=== PATIENT | male | born 1960 | race Native Hawaiian/Other Pacific Islander ===

== ENCOUNTER 2018-01-07 11:03 | Observation (INO) | payer MEDICARE ==
[2018-01-07] MEDS ORDERED: ASPIRIN PO ONE (11:27)
[2018-01-07] MEDS ORDERED: CARDIZEM/D5W 100MG/100ML 100 MG/100 ML BAG IV ONE (11:29)
[2018-01-07 11:56] LABS: Basophils # (Auto) 0.1 K/mm3 (0.0-0.1); Basophils % (Auto) 0.9 % (0.0-1.8); Eosinophils # (Auto) 0.1 K/mm3 (0.0-0.4); Eosinophils % (Auto) 0.8 % (0.0-4.3); Hematocrit 40.9 % (35.5-45.6); Hemoglobin 13.8 gm/dl (11.8-15.2); Lymphocytes # (Auto) 2.2 K/mm3 (1.2-5.4); Lymphocytes % (Auto) 32.6 % (13.4-35.0); Mean Corpuscular HGB Conc 34 % (32-34); Mean Corpuscular Hemoglobin 28 pg (28-32); Mean Corpuscular Volume 83 fl (84-94); Monocytes # (Auto) 0.5 K/mm3 (0.0-0.8); Platelet Count 169 K/mm3 (140-440); Red Blood Count 4.91 M/mm3 (3.65-5.03); Red Cell Distribution Width 13.8 % (13.2-15.2)
[2018-01-07 12:22] LABS: INR 0.97 (0.87-1.13)
[2018-01-07 12:23] LABS: Partial Thromboplastin Time 56.7 Sec. (24.2-36.6)
[2018-01-07 12:28] LABS: BUN/Creatinine Ratio 11; Blood Urea Nitrogen 14 mg/dL (9-20); Calcium 9.2 mg/dL (8.4-10.2)
[2018-01-07 12:29] LABS: Alanine Aminotransferase 37 units/L (7-56); Albumin 4.1 g/dL (3.9-5); Hemolysis Index 20
[2018-01-07 12:36] LABS: Bilirubin,Direct < 0.2 mg/dL (0-0.2)
--- NOTE | 2018-01-07 12:46 | XRay Report ---
PORTABLE CHEST INDICATION: Hypertension. COMPARISON: None similar. FINDINGS: Portable, frontal chest radiograph suggests borderline cardiomegaly. Clear lungs. EKG leads. Few bony degenerative changes. CONCLUSION: No acute chest process, as described. Thank you for the opportunity to participate in this patient's care.
--- NOTE | 2018-01-07 13:27 | Consultation ---
History of Present Illness Consult date: 01/07/18 Consult reason: tachycardia History of present illness: 57-year-old man who presented to the emergency room with a sustained, narrow complex tachycardia with heart rate 224 bpm. Prior to arrival to the emergency room, the suspender maker gave him 3 sequential doses of adenosine, which reportedly were unsuccessful in reverting the tachycardia. Ultimately in the emergency room he received intravenous amiodarone bolus, following which the tachycardia apparently resolved. A review of his ECGs and telemetry strips show the initial presenting tachycardia to have the appearance of her supraventricular or A-V node reentry tachycardia. Another differential of this tachycardia is possibly atrial flutter with one-to-one conduction. Following amiodarone slowing, the ECG shows an ectopic atrial tachycardia at 111/min, OR atrial flutter with variable AV conduction. In addition to the rhythm abnormalities, the patient had significant ST segment depression, likely tachycardia related, but some of which have persisted even after resolution of the tachycardia. The patient is still in the emergency room , looks and feels much better, no chest pain, no shortness of breath and no further palpitations. He gives a history of paroxysmal atrial tachyarrhythmias for several years, his photo editor is Dr. Jose Luis Torres. He states that he carries a diagnosis of atrial fibrillation. However, he is not on oral anticoagulation, but was instead told to take aspirin 325 daily. He is not on AV richard blocking therapy or arrhythmia suppression therapy. Previous cardiac workup includes a cardiac catheterization over 5 years ago, that he states was negative, and a negative stress test 2 months ago which was done for preoperative colonoscopy cardiac assessment. Comorbidities include hyperlipidemia for which he takes atorvastatin 20 mg. Past History Past Medical History: atrial fib, hypertension Medications and Allergies Active Meds: Active Medications Diltiazem HCl (Cardizem/D5w 100mg/100ml) 100 mg in 100 mls @ 5 mls/hr IV TITR ONE; Protocol Stop: 01/08/18 07:28 Last Admin: 01/07/18 12:55 Dose: 5 mg/hr, 5 mls/hr Review of Systems Cardiovascular: palpitations, shortness of breath, no chest pain, no orthopnea, no rapid/irregular heart beat, no edema, no syncope, no lightheadedness Physical Examination Vital Signs Resp Pulse Ox 26 H 100 01/07/18 11:08 01/07/18 11:08 General appearance: no acute distress HEENT: Positive: PERRL Neck: Positive: neck supple Cardiac: Positive: irregularly irregular Lungs: Positive: Decreased Breath Sounds Neuro: Positive: Grossly Intact Abdomen: Positive: Soft Male genitourinary: Positive: deferred Skin: Positive: Clear Extremities: Absent: edema Results 01/07/18 11:20 01/07/18 11:20 Cardiac Enzymes 01/07/18 Range/Units 11:20 AST 35 (5-40) units/L Coagulation 01/07/18 Range/Units 11:20 PT 13.4 (12.2-14.9) Sec. INR 0.97 (0.87-1.13) APTT 56.7 H (24.2-36.6) Sec. CBC 01/07/18 Range/Units 11:20 WBC 6.9 (4.5-11.0) K/mm3 RBC 4.91 (3.65-5.03) M/mm3 Hgb 13.8 (11.8-15.2) gm/dl Hct 40.9 (35.5-45.6) % Plt Count 169 (140-440) K/mm3 Lymph # 2.2 (1.2-5.4) K/mm3 [place] # 0.5 (0.0-0.8) K/mm3 Eos # 0.1 (0.0-0.4) K/mm3 Baso # 0.1 (0.0-0.1) K/mm3 Comprehensive Metabolic Panel 01/07/18 Range/Units 11:20 Sodium 140 (137-145) mmol/L Potassium 3.3 L (3.6-5.0) mmol/L Chloride 101.5 (98-107) mmol/L Carbon Dioxide 21 L (22-30) mmol/L BUN 14 (9-20) mg/dL Creatinine 1.3 (0.8-1.5) mg/dL Glucose 157 H (75-100) mg/dL Calcium 9.2 (8.4-10.2) mg/dL Direct Bilirubin < 0.2 (0-0.2) mg/dL Indirect Bilirubin 0.3 mg/dL AST 35 (5-40) units/L ALT 37 (7-56) units/L Alkaline Phosphatase 86 (35-129) units/L Total Protein 7.1 (6.3-8.2) g/dL Albumin 4.1 (3.9-5) g/dL EKG interpretations - Telemetry EKG Rhythm: SVT Assessment and Plan - Patient Problems (1) Narrow complex tachycardia Current Visit: Yes Status: Acute Plan to address problem: Narrow complex tachycardia was treated successfully with intravenous amiodarone. Following tachycardia his residual heart rhythm appears suspicious for atrial flutter with variable A-V conduction. We will continue amiodarone for arrhythmia suppression. Due to history of recurrent paroxysmal atrial flutter fibrillation, the patient will benefit from oral anticoagulation in place of aspirin. Due to persistent ischemic ST changes on ECG, we will recommend ischemic workup with cardiac catheterization. Risks and benefits of cardiac catheterization and discussed with the patient who consents to proceed. (2) Hypertension Current Visit: Yes Status: Acute Plan to address problem: History of hypertension which he has managed conservatively. However blood pressure was markedly elevated on presentation, he may benefit from medical therapy for blood pressure control.
[2018-01-07] MEDS ORDERED: NACL 0.9% 500 ML 500 ML IV SCH (14:00)
[2018-01-07] MEDS ORDERED: SODIUM CHLORIDE FLUSH SYRINGE 10 ML IV PRN (14:08)
--- NOTE | 2018-01-07 15:59 | History and Physical Report ---
History of Present Illness Date of admission: 01/07/18 14:08 Chief complaint: My heart was beating fast History of present illness: 57 YO Male with Atrial Fib no on Anticoagulation, HTN, HLD Obesity present to ED for evaluation. Pt states that he experienced an acute onset of chest palpitations and shortness of breath while walking. Pt called EMS and upon arrival the patient was found to have a heart rate of 224. Pt was treated with Adenosine and transported to [facility] for further care and evaluation. Pt seen and evaluated in ED and found to have EKG findings suspicious for STEMI, as well as Atrial Fib/Flutter. Pt treated with cardizem drip, and admitted to ICU. Cardiology consulted in ED. Pt denies fever, chills, NVD, Syncope,unilateral leg swelling, prolonged travel/immobility, individual/family history of DVT/PE, Unintentional weight loss, night sweats or recent ill contacts. Past History Past Medical History: atrial fib, hypertension, hyperlipidemia Past Surgical History: No surgical history, Other (reviewed) Social history: , lives with family. denies: smoking, alcohol abuse, prescription drug abuse Family history: hypertension Medications and Allergies Allergies Allergy/AdvReac Type Severity Reaction Status Date / Time No Known Allergies Allergy Unverified 01/07/18 14:13 Home Medications Medication Instructions Recorded Confirmed Last Taken Type Atorvastatin Calcium [Lipitor] 20 mg PO DAILY 01/07/18 01/07/18 Unknown History Cholecalciferol (Vitamin D3) 2,000 unit PO QDAY 01/07/18 01/07/18 Unknown History [Vitamin D3] Dexlansoprazole [Dexilant] 60 mg PO QDAY 01/07/18 01/07/18 Unknown History HYDROcodone/APAP 10-325 [[place] 1 each PO TID PRN 01/07/18 01/07/18 Unknown History 10/325] Active Meds: Active Medications Acetaminophen/Hydrocodone Bitart ([place] 10/325) 1 each PO TID PRN PRN Reason: Pain Amiodarone HCl (Cordarone) 200 mg PO BID [place] Aspirin (Aspirin) 325 mg PO QDAY [facility] Atorvastatin Calcium (Lipitor) 20 mg PO DAILY [place] Cholecalciferol (Vitamin D3) 2,000 unit PO QDAY [place] Diltiazem HCl (Cardizem) 60 mg PO Q6HR [place] Sodium Chloride (Nacl 0.9% 500 Ml) 500 mls @ 50 mls/hr IV DIRECT [place] Stop: 01/07/18 23:59 Last Admin: 01/07/18 14:32 Dose: 50 mls/hr Pantoprazole Sodium (Protonix) 40 mg PO DAILY [facility] Sodium Chloride (Sodium Chloride Flush Syringe 10 Ml) 10 ml IV PRN PRN PRN Reason: LINE FLUSH Sodium Chloride (Sodium Chloride Flush Syringe 10 Ml) 10 ml IV BID [facility] Review of Systems Constitutional: no weight loss, no weight gain, no fever, no chills Ears, nose, mouth and throat: no ear pain, no ear discharge, no tinnitis, no decreased hearing, no nose pain, no nasal congestion, no nasal discharge Cardiovascular: palpitations Respiratory: no cough, no cough with sputum, no excessive sputum, no hemoptysis Gastrointestinal: no abdominal pain, no nausea, no vomiting, no diarrhea, no constipation Genitourinary Male: no hematuria, no flank pain, no discharge, no urinary frequency, no urinary hesitancy Rectal: no pain, no incontinence, no bleeding Musculoskeletal: no neck stiffness, no neck pain, no shooting arm pain, no arm numbness/tingling, no shooting leg pain, no leg numbness/tingling Integumentary: no rash, no pruritis, no redness, no sores, no wounds, no jaundice, no boils Neurological: no head injury, no transient paralysis, no paralysis, no weakness , no parathesias, no numbness, no tingling, no seizures Psychiatric: no anxiety, no memory loss, no change in sleep habits, no sleep disturbances, no insomnia, no hypersomnia, no change in appetite, no change in libido, no disorientation Endocrine: no cold intolerance, no heat intolerance, no polyphagia, no excessive thirst, no polydipsia, no polyuria Hematologic/Lymphatic: no easy bruising, no easy bleeding, no lymphadenopathy, no lymphedema Allergic/Immunologic: no urticaria, no allergic rhinitis, no wheezing, no persistent infections, no anaphylaxis, no angioedema Exam - Constitutional Vitals: Temp Pulse Resp BP Pulse Ox 98.5 F 130 H 15 129/75 99 01/07/18 11:28 01/07/18 15:31 01/07/18 15:31 01/07/18 15:31 01/07/18 15:31 General appearance: Present: mild distress - EENT Eyes: Present: PERRL ENT: hearing intact, clear oral mucosa - Neck Neck: Present: supple, normal ROM - Respiratory Respiratory effort: normal Respiratory: bilateral: CTA - Cardiovascular Rhythm: irregularly irregular - Extremities Extremities: pulses symmetrical, No edema Peripheral Pulses: within normal limits - Abdominal General gastrointestinal: Present: soft, non-tender, non-distended, normal bowel sounds Male genitourinary: Present: normal - Integumentary Integumentary: Present: clear, warm, dry - Musculoskeletal Musculoskeletal: gait normal, strength equal bilaterally - Psychiatric Psychiatric: appropriate mood/affect, intact judgment & insight - Neurologic Neurologic: CNII-XII intact, moves all extremities Results - Labs CBC & Chem 7: 01/07/18 11:20 01/07/18 11:20 Labs: Abnormal lab results 01/07/18 01/07/18 01/07/18 Range/Units 11:20 11:20 11:20 MCV 83 L (84-94) fl APTT 56.7 H (24.2-36.6) Sec. Potassium 3.3 L (3.6-5.0) mmol/L Carbon Dioxide 21 L (22-30) mmol/L Glucose 157 H (75-100) mg/dL POC Glucose (70-105) Magnesium 1.50 L (1.7-2.3) mg/dL 01/07/18 Range/Units 11:22 MCV (84-94) fl APTT (24.2-36.6) Sec. Potassium (3.6-5.0) mmol/L Carbon Dioxide (22-30) mmol/L Glucose (75-100) mg/dL POC Glucose 154 H (70-105) Magnesium (1.7-2.3) mg/dL Assessment and Plan - Patient Problems (1) Atrial fibrillation and flutter Current Visit: Yes Status: Acute Plan to address problem: Pt started on cardizem drip, Cardiology consulted, Pt started on amiodarone drip as per cardiology team. Admit to ICU The high probability of a clinically significant, sudden or life threatening deterioration of the [Cardiac, neuro, renal ] system(s) required my full and direct attention, intervention and personal management. The aggregate critical care time was [65] minutes. This time is in addition to time spent performing reported procedures but includes the following: [x] Data Review and interpretation [x] Patient assessment and monitoring of vital signs [x] Documentation [x] Medication orders and management (2) STEMI (ST elevation myocardial infarction) Current Visit: Yes Status: Suspected Plan to address problem: Cardiology consulted, admit to ICU, treat Atrial fib/flutter, supportive care, telemetry monitoring, serial ekg. (3) Hypertension Current Visit: Yes Status: Acute Qualifiers: Hypertension type: essential hypertension Qualified Code(s): I10 - Essential (primary) hypertension Plan to address problem: monitor BP q shift, supportive care, continue medical management (4) DVT prophylaxis Current Visit: Yes Status: Acute Plan to address problem: SCD to BLE while in bed
[2018-01-07 16:48] LABS: Chol/HDL Ratio 2.33 %
[2018-01-07] MEDS: CARDIZEM PO SCH ×2 (18:13→23:57)
[2018-01-07] MEDS: NORCO 10/325 PO PRN ×2 (18:15→22:02)
--- NOTE | 2018-01-07 19:41 | Emergency Department Report ---
ED General Adult HPI - General Chief complaint: Arrhythmia/Palpitations Stated complaint: SVT Time Seen by Provider: 01/07/18 11:27 Source: patient, EMS Mode of arrival: Stretcher Limitations: No Limitations - History of Present Illness Initial comments: This is a 57-year-old male that presents to the emergency department with a narrow complex tachycardia at about 220. He was given 6 mg and then 12 mg of adenosine by paramedics with out benefit. He arrives in the emergency department hypertensive and dictating fine. He states that he has had this racing heart problem for a few hours. He has had some chest discomfort with it but nonradiating. He has had some shortness of breath but is breathing now at rest without increased work. Patient states he is seen a web weaver before but never diagnosed with coronary artery disease. He states he's felt some episodes of tachycardia in the past but never diagnosed with atrial fibrillation nor had a trip to the emergency department nor was given any medication for a tachycardia. -: Sudden Location: chest (some mild chest discomfort but not active at the time of my encounter) Radiation: non-radiation Quality: aching Consistency: intermittent Worsens with: other (related to tachycardia) Associated Symptoms: denies other symptoms Treatments Prior to Arrival: none - Related Data Home Medications Medication Instructions Recorded Confirmed Last Taken Atorvastatin Calcium [Lipitor] 20 mg PO DAILY 01/07/18 01/07/18 Unknown Cholecalciferol (Vitamin D3) 2,000 unit PO QDAY 01/07/18 01/07/18 Unknown [Vitamin D3] Dexlansoprazole [Dexilant] 60 mg PO QDAY 01/07/18 01/07/18 Unknown HYDROcodone/APAP 10-325 [[place] 1 each PO TID PRN 01/07/18 01/07/18 Unknown 10/325] Allergies Allergy/AdvReac Type Severity Reaction Status Date / Time No Known Allergies Allergy Unverified 01/07/18 14:13 ED Review of Systems ROS: Stated complaint: SVT Other details as noted in HPI Constitutional: denies: chills, fever Eyes: denies: eye pain, eye discharge, vision change ENT: denies: ear pain, throat pain Respiratory: shortness of breath. denies: cough, wheezing Cardiovascular: chest pain, palpitations Endocrine: no symptoms reported Gastrointestinal: denies: abdominal pain, nausea, diarrhea Genitourinary: denies: urgency, dysuria Musculoskeletal: denies: back pain, joint swelling, arthralgia Skin: denies: rash, lesions Neurological: denies: headache, weakness, paresthesias Psychiatric: denies: anxiety, depression Hematological/Lymphatic: denies: easy bleeding, easy bruising ED Past Medical Hx - Past Medical History Previous Medical History?: Yes Hx Hypertension: No Hx Arthritis: Yes (Hands) Hx Kidney Stones: Yes (At the age of 17) Additional medical history: afib, hyperlipidemia - Surgical History Past Surgical History?: No - Social History Smoking Status: Former Smoker - Medications Home Medications: Home Medications Medication Instructions Recorded Confirmed Last Taken Type Atorvastatin Calcium [Lipitor] 20 mg PO DAILY 01/07/18 01/07/18 Unknown History Cholecalciferol (Vitamin D3) 2,000 unit PO QDAY 01/07/18 01/07/18 Unknown History [Vitamin D3] Dexlansoprazole [Dexilant] 60 mg PO QDAY 01/07/18 01/07/18 Unknown History HYDROcodone/APAP 10-325 [[place] 1 each PO TID PRN 01/07/18 01/07/18 Unknown History 10/325] ED Physical Exam - General Limitations: No Limitations General appearance: other (patient is not diaphoretic but apparently had been sweating ) - Head Head exam: Present: atraumatic, normocephalic - Eye Eye exam: Present: normal appearance. Absent: scleral icterus - ENT ENT exam: Present: mucous membranes moist - Neck Neck exam: Present: normal inspection - Respiratory Respiratory exam: Present: normal lung sounds bilaterally. Absent: respiratory distress - Cardiovascular Cardiovascular Exam: Present: tachycardia (regular tachycardia at about 220). Absent: systolic murmur, diastolic murmur, rubs, gallop - GI/Abdominal GI/Abdominal exam: Present: soft, normal bowel sounds. Absent: distended, tenderness, guarding, rebound, rigid - Rectal Rectal exam: Present: deferred - Extremities Exam Extremities exam: Present: normal inspection - Back Exam Back exam: Present: normal inspection - Neurological Exam Neurological exam: Present: alert, oriented X3, CN II-XII intact. Absent: motor sensory deficit - Psychiatric Psychiatric exam: Present: normal affect, normal mood - Skin Skin exam: Present: warm, dry, intact, normal color. Absent: rash ED Course Vital Signs 01/07/18 01/07/18 01/07/18 11:08 11:15 11:28 Temperature 98.5 F Pulse Rate 112 H 222 H Respiratory 26 H 24 Rate Blood Pressure 89/49 O2 Sat by Pulse 100 99 100 Oximetry 01/07/18 01/07/18 01/07/18 11:31 11:45 12:00 Temperature Pulse Rate 111 H 106 H 91 H Respiratory 21 20 24 Rate Blood Pressure 151/90 126/66 130/88 O2 Sat by Pulse 100 99 100 Oximetry 01/07/18 01/07/18 01/07/18 12:15 12:31 12:45 Temperature Pulse Rate 90 92 H 120 H Respiratory 20 15 17 Rate Blood Pressure 137/67 O2 Sat by Pulse 100 99 99 Oximetry 01/07/18 01/07/18 01/07/18 13:01 13:15 13:55 Temperature Pulse Rate 124 H 109 H 123 H Respiratory 14 22 19 Rate Blood Pressure 131/73 116/70 O2 Sat by Pulse Oximetry 01/07/18 01/07/18 01/07/18 14:00 14:15 14:31 Temperature Pulse Rate 128 H 108 H 113 H Respiratory 21 17 21 Rate Blood Pressure 129/78 127/81 127/81 O2 Sat by Pulse 100 100 100 Oximetry 01/07/18 01/07/18 01/07/18 14:45 15:00 15:15 Temperature Pulse Rate 109 H 96 H 96 H Respiratory 17 15 17 Rate Blood Pressure 127/81 127/81 127/81 O2 Sat by Pulse 100 97 100 Oximetry 01/07/18 01/07/18 01/07/18 15:31 15:39 15:45 Temperature Pulse Rate 130 H 142 H 134 H Respiratory 15 18 Rate Blood Pressure 129/75 131/78 O2 Sat by Pulse 99 100 Oximetry 01/07/18 01/07/18 01/07/18 16:01 16:15 16:30 Temperature Pulse Rate 107 H 141 H 101 H Respiratory 19 11 L 22 Rate Blood Pressure 137/78 117/73 128/78 O2 Sat by Pulse 100 99 100 Oximetry 01/07/18 16:45 Temperature Pulse Rate 113 H Respiratory 17 Rate Blood Pressure 128/78 O2 Sat by Pulse Oximetry - Reevaluation(s) Reevaluation #1: The patient had very substantial ST depression and slight elevation in a few noncontiguous leads. It was not unlikely that he had atrial flutter with 1-1 conduction as P waves were evident. Alternatively this might have been a reentrant tachycardia. The web weaver Dr. Roldan precedes the EKGs for review. He stated that the patient might need cardioversion if tachycardia was persistent. The patient had a good blood pressure and was mentating well. He was not having any active chest pain. Therefore, I decided to try 150 mg of amiodarone. This successfully decrease the patient's rhythm to the low 100s. Subsequent EKG found the patient to be in atrial fibrillation. Patient did well clinically. He was ultimately seen by and was admitted by the hospitalist Dr. Vickers in stable condition. He was placed on a diltiazem drip. 01/07/18 19:42 01/07/18 19:45 01/07/18 19:45 Both patient's magnesium and potassium was replaced. ED Medical Decision Making - Lab Data Result diagrams: 01/07/18 11:20 01/07/18 11:20 Laboratory Results - last 24 hr 01/07/18 01/07/18 01/07/18 11:20 11:20 11:20 WBC 6.9 RBC 4.91 Hgb 13.8 Hct 40.9 MCV 83 L MCH 28 MCHC 34 RDW 13.8 Plt Count 169 Lymph % (Auto) 32.6 [place] % (Auto) 7.0 Eos % (Auto) 0.8 Baso % (Auto) 0.9 Lymph # 2.2 [place] # 0.5 Eos # 0.1 Baso # 0.1 Seg Neutrophils % 58.7 Seg Neutrophils # 4.0 PT 13.4 INR 0.97 APTT 56.7 H Sodium 140 Potassium 3.3 L Chloride 101.5 Carbon Dioxide 21 L Anion Gap 21 BUN 14 Creatinine 1.3 Estimated GFR 57 BUN/Creatinine Ratio 11 Glucose 157 H POC Glucose Calcium 9.2 Magnesium 1.50 L Total Bilirubin 0.50 Direct Bilirubin < 0.2 Indirect Bilirubin 0.3 AST 35 ALT 37 Alkaline Phosphatase 86 Troponin T < 0.010 NT-Pro-B Natriuret Pep 31.25 Total Protein 7.1 Albumin 4.1 Albumin/Globulin Ratio 1.4 Blood Type Antibody Screen 01/07/18 01/07/18 11:20 11:22 WBC RBC Hgb Hct MCV MCH MCHC RDW Plt Count Lymph % (Auto) [place] % (Auto) Eos % (Auto) Baso % (Auto) Lymph # [place] # Eos # Baso # Seg Neutrophils % Seg Neutrophils # PT INR APTT Sodium Potassium Chloride Carbon Dioxide Anion Gap BUN Creatinine Estimated GFR BUN/Creatinine Ratio Glucose POC Glucose 154 H Calcium Magnesium Total Bilirubin Direct Bilirubin Indirect Bilirubin AST ALT Alkaline Phosphatase Troponin T NT-Pro-B Natriuret Pep Total Protein Albumin Albumin/Globulin Ratio Blood Type O POSITIVE Antibody Screen Negative - EKG Data -: EKG Interpreted by Me (reassured no tachycardia versus one-to-one flutter with cardioversion to af) - EKG Data Interpretation: other (significant ST depression with reentrant richard tachycardia improved with cardioversion) Critical Care Time: Yes Critical care time in (mins) excluding proc time.: 60 Critical care attestation.: If time is entered above; I have spent that time in minutes in the direct care of this critically ill patient, excluding procedure time. ED Disposition Clinical Impression: Narrow complex tachycardia, Atrial fibrillation and flutter, Elevated troponin Hypertension Qualifiers: Hypertension type: essential hypertension Qualified Code(s): I10 - Essential ( primary) hypertension Chest pain Qualifiers: Chest pain type: unspecified Qualified Code(s): R07.9 - Chest pain, unspecified Disposition: DC-09 OP ADMIT IP TO THIS HOSP Is pt being admited?: Yes Does the pt Need Aspirin: Yes Condition: Stable Time of Disposition: 19:48
[2018-01-07] MEDS: CORDARONE PO SCH (21:54)
[2018-01-07] MEDS: SODIUM CHLORIDE FLUSH SYRINGE 10 ML IV SCH (23:59)
[2018-01-08] MEDS: CARDIZEM PO SCH ×2 (06:27→11:36)
[2018-01-08] MEDS: NORCO 10/325 PO PRN ×2 (06:29→14:43)
[2018-01-08] MEDS ORDERED: VITAMIN D3 PO SCH (10:00)
[2018-01-08] MEDS ORDERED: PROTONIX PO SCH (10:00)
[2018-01-08] MEDS ORDERED: ASPIRIN PO SCH (10:00)
[2018-01-08] MEDS ORDERED: NON-FORMULARY (Dexlansoprazole [Dexilant] 60 MG) PO SCH (10:00)
[2018-01-08] MEDS ORDERED: NON-FORMULARY (Cholecalciferol (Vitamin D3) [Vitamin D3] 2,000 UNIT) PO SCH (10:00)
[2018-01-08] MEDS: CORDARONE PO SCH (10:41)
[2018-01-08] MEDS: SODIUM CHLORIDE FLUSH SYRINGE 10 ML IV SCH (10:42)
[2018-01-08] MEDS ORDERED: CORDARONE IV ONE (13:05)
--- NOTE | 2018-01-08 13:43 | Discharge Summary ---
Providers - Providers Date of Admission: 01/07/18 14:08 Date of discharge: 01/08/18 Attending physician: NADIA DE LA TORRE 01/07/18 14:09 Consult to Physician [CONS] Routine Comment: Consulting Provider: ANETA ERVIN Physician Instructions: Reason For Exam: Afib on cardizem drip 01/07/18 14:23 Consult to Physician [CONS] Urgent Comment: Consulting Provider: HANANE DE LA VEGA Physician Instructions: Reason For Exam: SVT to AF Primary care physician: RADIOLOGICAL METALLURGIST Hospitalization Condition: Stable Hospital course: Patient is a 57-year-old man with a history of dyslipidemia and P. afib/ aflutter who presented to the emergency room with a sustained, narrow complex tachycardia with heart rate 224 bpm. Prior to arrival to the emergency room, the correctional lieutenant gave him 3 sequential doses of adenosine, which reportedly were unsuccessful in reverting the tachycardia. Ultimately in the emergency room he received intravenous amiodarone bolus, following which the tachycardia apparently resolved. He was admitted to the ICU. EKG findings were suspicious for STEMI, which it appears was ruled out by Sustainable Agriculture Specialist. He gives a history of paroxysmal atrial tachyarrhythmias for several years, his residential treatment specialist is Dr. Jose Luis Torres which he has an appointment with tomorrow at 8am. He states that he carries a diagnosis of atrial fibrillation. However, he is not on oral anticoagulation, but was instead told to take aspirin 325 daily. He is not on AV richard blocking therapy or arrhythmia suppression therapy. Previous cardiac workup includes a cardiac catheterization over 5 years ago, that he states was negative, and a negative stress test 2 months ago which was done for preoperative colonoscopy cardiac assessment. A review of his ECGs and telemetry strips show the initial presenting tachycardia to have the appearance of her supraventricular or A-V node reentry tachycardia. Another differential of this tachycardia is possibly atrial flutter with one-to-one conduction. Following amiodarone slowing, the ECG shows an ectopic atrial tachycardia at 111/min, OR atrial flutter with variable AV conduction. In addition to the rhythm abnormalities, the patient had significant ST segment depression, likely tachycardia related, but some of which have persisted even after resolution of the tachycardia. The patient is still in the emergency room, looks and feels much better, no chest pain, no shortness of breath and no further palpitations. Due to persistent ischemic ST changes on ECG, we will recommend ischemic workup with cardiac catheterization. Risks and benefits of cardiac catheterization and discussed with the patient who consents to proceed. Patient refused Cardiac catherization or any more testing because he plans to see his Sustainable Agriculture Specialist tomorrow. -Aflutter/Afib with RVR, now controlled: d/w Dr. De La Vega, ok to discharge, with Eliquis, Cardizem CD 240mg/d and Amiodarone 200mg/day -Hypertension: blood pressure control. -Dyslipidemia: continue statins r/o STEMI (ST elevation myocardial infarction) Disposition: DC- TO HOME OR SELFCARE Time spent for discharge: 35 minutes Core Measure Documentation - Palliative Care Palliative Care/ Comfort Measures: Not Applicable - Core Measures Any of the following diagnoses?: none - VTE Discharge Requirements Deep Vein Thrombosis/Pulmonary Embolism Present on Admission: No Has pt received <5 days of overlap therapy or INR<2.0: No Anticoagulant overlap therapy prescribed at discharge: No Contraindication No Overlap Therapy order at DC: Not Indicated Exam - Physical Exam Narrative exam: GEN: WDWN, NAD, Awake, Alert, Orientated x 3 HEENT: NCAT, EOMI, PERRL, OP Clear NECK: supple, no adenopathy, no thyromegaly, no JVD CVS/HEART: regular irregular, normal S1S2, pulses present bilaterally CHEST/LUNGS: CTA B, Symmetrical chest expansion, good air entry bilaterally GI/Abdomen: soft, NTND, good bowel sounds, no guarding or rebound /Bladder: no suprapubic tenderness, no CVA or paraspinal tenderness EXT/Skin: no c/c/e, no obvious rash MSK: FROM x 4 Neuro: CN 2-12 grossly intact, no new focal deficits Psych: calm - Constitutional Vitals: Temp Pulse Resp BP Pulse Ox 98.5 F 63 26 H 112/61 99 01/08/18 12:00 01/08/18 11:36 01/08/18 11:11 01/08/18 11:36 01/08/18 11:11 Plan Activity: other (no strenous activity including driving until cleared by Sustainable Agriculture Specialist) Diet: low salt Follow up with: PRIMARY CARE, [Primary Care Provider] - 7 Days Jose Luis Torres [Other] - 01/09/18 8:00 am Prescriptions: Amiodarone [Cordarone 200 MG TAB] 200 mg PO QDAY #30 tablet Apixaban [Eliquis] 5 mg PO BID #60 tablet Diltiazem Cd [Cardizem Cd] 240 mg PO QDAY #30 cap HYDROcodone/APAP 10-325 [[place] 10-325 mg TAB] 1 each PO TID PRN #6 tablet PRN Reason: Pain , Severe (7-10)
--- NOTE | 2018-01-08 15:07 | Event Note ---
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 His cardiac rhythm is stable sinus rhythm, no significant ST or T-wave abnormalities on his current ECG today. On discharge, will recommend medical therapy for atrial fibrillation suppression including Cardizem, amiodarone and oral anticoagulation with Eliquis.
[2018-01-08 17:12] VITALS: BP 111/58
== END 2018-01-08 17:00 | disposition home or self-care (01) ==
LOC: ED 11:03 → CC1 14:08 → INTOOBSV 14:08 → CC1 16:40
PROVIDERS: ADMIT Internal Medicine; ATTEND Internal Medicine
DX: I48.92 Unspecified atrial flutter (principal); I48.91 Unspecified atrial fibrillation; I10 Essential (primary) hypertension; I21.3 ST elevation (STEMI) myocardial infarction of unspecified site; E78.5 Hyperlipidemia, unspecified; F32.9 Major depressive disorder, single episode, unspecified; M19.042 Primary osteoarthritis, left hand; M19.041 Primary osteoarthritis, right hand; Z82.49 Family history of ischemic heart disease and other diseases of the circulatory system; Z87.891 Personal history of nicotine dependence
CPT/HCPCS: 36415; 71045; 80048; 80061; 80074; 82962; 83735; 83880; 84484; 85025; 85610; 85730; 86850; 86900; 86901; 93005; 93010; 94760; 96365; 96366; 99291; A9270; G0378; J0282; J7040